=== PATIENT | male | born 1990 | race Caucasian/White ===

== ENCOUNTER 2024-02-23 11:19 | Emergency (ER) | payer MEDICAID ==
[~2024-02-23] VITALS: Ht 175.3 cm; Wt 52.0 kg
[2024-02-23] MEDS ORDERED: ONDA-243 PO (12:50)
[2024-02-23 13:14] VITALS: BP 118/62; PULSE 74; RESP 14; TEMP 98.2; O2SAT 98
== END 2024-02-23 13:20 | disposition home or self-care (01) ==
LOC: ER 11:20
DX: J20.9 Acute bronchitis, unspecified (principal); R11.0 Nausea
CPT/HCPCS: 71046; 99283